=== PATIENT | female | born 2005 | race Two or more races ===

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

== ENCOUNTER 2025-02-03 09:54 | Emergency (ER) | payer OTHER ==
[~2025-02-03] VITALS: Ht 162.6 cm; Wt 83.6 kg
[2025-02-03 11:05] VITALS: BP 129/81; TEMP 98.6; O2SAT 98
[2025-02-03] MEDS ORDERED: BACI500O8 TOP (11:27)
== END 2025-02-03 11:37 | disposition home or self-care (01) ==
LOC: M ED 09:54
DX: S91.202A Unspecified open wound of left great toe with damage to nail, initial encounter (principal); Y92.9 Unspecified place or not applicable; Y93.9 Activity, unspecified; Y99.0 Civilian activity done for income or pay; W24.0XXA Contact with lifting devices, not elsewhere classified, initial encounter; Z88.1 Allergy status to other antibiotic agents; Z88.8 Allergy status to other drugs, medicaments and biological substances; Z79.2 Long term (current) use of antibiotics